=== PATIENT | female | born 2000 | race Caucasian/White ===

== ENCOUNTER → 2018-10-12 13:48 | Outpatient (CLI) | payer OTHER, SELFPAY ==
--- NOTE | 2018-10-12 13:58 | RAD_ITS ---
HISTORY: PAIN, HEMATURIA COMPARISON: None FINDINGS: XR Abdomen 1 View: BOWEL GAS PATTERN: Non-obstructive. No bowel or stomach distention. FREE AIR: None apparent. ORGANOMEGALY: Not seen. CALCIFICATIONS: 2 punctate calcifications on the right and one in the left pelvis. LOWER CHEST: No acute pathology. BONES AND SOFT TISSUES: No acute pathology. IUD in the pelvis. RAD/Abdomen Single View IMPRESSION: Non-obstructive bowel gas pattern. No acute findings. 2 punctate pelvic calcifications may represent phleboliths. Distal ureteral stones possible however. Comparison with priors would be helpful. at 0009 Reported and signed by: George Silva MD Electronically Signed: George Silva, at 0:08 EDT Tel , Service support ,
== END ==
DX: N20.0 Calculus of kidney (principal)
CPT/HCPCS: 74018

== ENCOUNTER 2022-07-17 18:32 | Emergency (ER) | payer BC, SELFPAY ==
[2022-07-17 18:34] VITALS: BP 149/97; PULSE 92; RESP 16; TEMP 37; O2SAT 100; BMI 23.8
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
[2022-07-17 19:25] VITALS: BP 121/87; PULSE 99; RESP 16; O2SAT 100
[2022-07-17 19:27] LABS: Absolute Lymphocyte Count 2.14 X10^3/uL (0.83-4.51); Basophil# 0.05 X10^3/uL; Basophil% 0.4 % (0-1); Eosinophil# 0.44 X10^3/uL; Eosinophils% 3.8 % (0-5); Hematocrit 34.6 % (37-47); Hemoglobin 11.2 g/dL (12.0-15.0); Lymphocyte # 2.14 X10^3/ul (0.83-4.51); Lymphocyte % 18.3 % (19-41); Mean Corp Hgb Conc 32.4 g/dL (32-36); Mean Corpuscular Hgb 29.1 pg (27.0-32.0); Mean Corpuscular Volume 89.9 fL (81-99); Mean Platelet Vol. 10.4 fl (6.2-12.0); Monocyte# 1.01 X10^3/uL; Monocyte% 8.7 % (0-10); NRBC Flagged by Analyzer 0 % (0-5); Neutrophil # 7.95 X10^3/uL (2.7-7.7); Neutrophil % 68.1 % (47-70); Platelet Count 273 K/mm3 (150-450); RBC Distribution Width CV 13.4 % (11.6-14.6); RBC Distribution Width SD 43.7 fl (35.1-43.9); Red Blood Count 3.85 M/mm3 (4.2-5.4); White Blood Count 11.7 K/mm3 (4.4-11.0)
[2022-07-17 19:50] LABS: Prothrombin Time (Protime)PT. 12.7 SECONDS (11.7-14.9)
[2022-07-17 19:51] LABS: Fibrinogen 587 mg/dl (203-444); Partial Thromboplast Time 28.4 Seconds (24.1-36.2)
== END 2022-07-17 19:26 | disposition home or self-care (01) ==
PROVIDERS: Emergency Provider Emergency Medicine; Visit Provider Emergency Medicine
DX: O9A.212 Injury, poisoning and certain other consequences of external causes complicating pregnancy, second trimester (principal); S39.81XA Other specified injuries of abdomen, initial encounter; S39.012A Strain of muscle, fascia and tendon of lower back, initial encounter; V43.52XA Car driver injured in collision with other type car in traffic accident, initial encounter; W22.11XA Striking against or struck by driver side automobile airbag, initial encounter; Y93.89 Activity, other specified; Z3A.20 20 weeks gestation of pregnancy
CPT/HCPCS: 85025; 85384; 85610; 85730; 86900; 86901; 99284

== ENCOUNTER 2022-07-17 19:20 | Outpatient (CLI) | payer BC, SELFPAY ==
[2022-07-17 19:34] VITALS: BP 113/65; PULSE 86; TEMP 37.6; O2SAT 99
[2022-07-17 20:10] VITALS: BMI 23.1
[2022-07-17 20:15] VITALS: PULSE 104; RESP 18
[2022-07-17] MEDS: Albuterol 2.5 MG/3 ML VIAL.NEB. INHALATION (20:15)
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
== END 2022-07-17 21:12 | disposition home or self-care (01) ==
LOC: WPOUT 19:28 → WP 19:28
PROVIDERS: Visit Provider Obstetrics & Gynecology
DX: O9A.212 Injury, poisoning and certain other consequences of external causes complicating pregnancy, second trimester (principal); O99.891 Other specified diseases and conditions complicating pregnancy; O99.512 Diseases of the respiratory system complicating pregnancy, second trimester; S39.91XA Unspecified injury of abdomen, initial encounter; J45.909 Unspecified asthma, uncomplicated; R06.02 Shortness of breath; Z3A.19 19 weeks gestation of pregnancy; V89.2XXA Person injured in unspecified motor-vehicle accident, traffic, initial encounter
CPT/HCPCS: 59050; 76815; 94640

== ENCOUNTER 2022-12-01 05:12 | Inpatient (IN) | payer BC, MEDICAID, SELFPAY ==
[2022-12-01] VITALS (19 sets, daily range): BP systolic 97–119; BP diastolic 40–83; PULSE 61–102; RESP 14–18; TEMP 36.4–37.2; O2SAT 95–100; BMI 28.5
[2022-12-01 05:55] LABS: Absolute Neutrophil Count 7.4 X10^3/uL (2.0-7.7); Basophil# 0.07 X10^3/uL; Basophil% 0.6 % (0-1); Eosinophil# 0.21 X10^3/uL; Eosinophils% 1.9 % (0-5); Hematocrit 31.6 % (37-47); Hemoglobin 9.9 g/dL (12.0-15.0); Lymphocyte % 17.7 % (19-41); Mean Corp Hgb Conc 31.3 g/dL (32-36); Mean Corpuscular Hgb 26.1 pg (27.0-32.0); Mean Corpuscular Volume 83.4 fL (81-99); Mean Platelet Vol. 11.2 fl (6.2-12.0); Monocyte# 1.22 X10^3/uL; Monocyte% 10.8 % (0-10); NRBC Flagged by Analyzer 0 % (0-5); Neutrophil # 7.44 X10^3/uL (2.7-7.7); Neutrophil % 65.6 % (47-70); Platelet Count 299 K/mm3 (150-450); RBC Distribution Width CV 16.7 % (11.6-14.6); RBC Distribution Width SD 42.5 fl (35.1-43.9); Red Blood Count 3.79 M/mm3 (4.2-5.4); White Blood Count 11.3 K/mm3 (4.4-11.0)
[2022-12-01] MEDS: Lactated Ringers 1,000 ML 999 ML IV (05:58)
[2022-12-01] MEDS: Acetaminophen 500 MG Tablet 1000 MG PO ×4 (06:39→23:47)
[2022-12-01] MEDS: Lactated Ringers 1,000 ML 150 ML IV (06:40)
[2022-12-01] MEDS: Sodium Citrate/Citric Acid 30 ML UDC PO (06:41)
--- NOTE | 2022-12-01 07:00 | PCM.HP.BLA ---
History and Physical Date of Admission: 12/01/22 DATE OF SERVICE: November 17, 2022 ? PROBLEM: h/o Crohn's disease, elective primary section, 39 week gestation, single IUP ? DIAGNOSIS: as above ? PAST SURGICAL HISTORY: PAST SURGICAL HISTORYExpand by Default PAST SURGICAL HISTORY Procedure Laterality Date ? ABSCESS DRAINAGE (SPECIFY LOCATION) HX ? ? ? perianal 2017, 2018, 2018, 2020 ? ADENOIDECTOMY PRIMARY <AGE 12 ? ? ? Adenoidectomy ? COLONOSCOPY ? 2009 ? ENDOSCOPY PROC ? ? ? TONSILLECTOMY PRIMARY/SECONDARY <AGE 12 ? ? ? Tonsillectomy ? ? PAST MEDICAL HISTORY: PAST MEDICAL HISTORYExpand by Default PAST MEDICAL HISTORY Diagnosis Date ? Anemia ? ? anxiety ? ? Asthma ? ? Chlamydia ? ? 2020 ? Crohn's disease (HCC) 2008 ? Motion sickness ? ? ? SUBJECTIVE: Doing well and no complaits ? SOCIAL HISTORY: SOCIAL HISTORYExpand by Default Social History ? Tobacco Use ? Smoking status: Never ? Smokeless tobacco: Never Vaping Use ? Vaping Use: Never used Substance Use Topics ? Alcohol use: No ? Drug use: No ? ? ALLERGIESExpand by Default ALLERGIES Allergen Reactions ? Aspirin Shortness of Breath ? Peanuts Shortness of Breath ? Reglan [Metoclopram* Intolerance ? ? anxiety ? Shellfish Derived Swelling ? ? Swelling of throat ? Current Outpatient Medications on File Prior to Visit Medication Sig ? valACYclovir (VALTREX) 500 mg tablet Take 1 tablet by mouth twice daily. ? Lactobacillus acidophilus (FLORAJEN ACIDOPHILUS) 20 billion cell cap Take 1 capsule by mouth once daily. ? EPINEPHRINE (EPIPEN INJECTION) Inject intramuscularly. ? fluticasone-salmeterol (ADVAIR) 500-50 mcg/dose dsdv Inhale 1 Puff as instructed twice daily. ? albuterol HFA (PROVENTIL HFA, VENTOLIN HFA) 90 mcg/actuation inhaler Inhale 2 Puffs as instructed every 4 hours as needed for wheezing/shortness of breath. ? pyridoxine, vitamin B6, (VITAMIN B6) 25 mg tablet Take 1 tablet by mouth daily at bedtime. ? cholecalciferol (VITAMIN D3) 1,000 unit tab tablet 2 tablets by ORAL/FEEDING TUBE route once daily. ? Ferrous Fumarate 325 mg (106 mg iron) tab Take 1 tablet by mouth every other day in the morning. Take with food and water ? No current facility-administered medications on file prior to visit. ? OBJECTIVE: ? VITALS: BP 120/80 Wt 164 lb 9.6 oz (74.7 kg) LMP 03/01/2022 (Exact Date) BMI 25.78 kg/m? ? HEENT: Normocephalic, atraumatic, Mucus membranes moist without lesions. ? NECK: Soft and Supple. No adenopathy , thyromegaly or bruits. ? SKIN: No lesions. ? CHEST: Clear to auscultation. No wheezes or rales. Good air exchange. ? HEART: Regular rate and rhythm No S3 or S4. No gallops or rubs. ? BACK: Nontender with no CVA tenderness. ? ABDOMEN: Soft, non-tender, non-distended, no masses, no hepatosplenomegaly. ? LOWER EXTREMITIES: There was no pitting edema, no palpable cords and no skin changes. ? ASSESSMENT: pre op section ? PLAN: 1) Reviewed section in detail. The rationale for the proposed surgery was discussed in addition to risks, benefits, and alternatives. General pre- and post-operative care was reviewed. Questions were answered. After discussion, the patient indicated a desire to proceed with the planned surgery. ? Stacie Arriaga, DO Assessment & Plan Assessment/Plan (1) 39 weeks gestation of : (2) Crohn's disease: (3) Anemia affecting :
[2022-12-01] MEDS: Cefazolin 2 GM in 0.9% Normal Saline 100 ML IV (07:10)
--- NOTE | 2022-12-01 08:22 | PCM.OPRPT ---
Problems Associated Problem List Diagnoses (1) Delivery by section: (2) Anemia affecting : (3) Crohn's disease: (4) 39 weeks gestation of : Report of Operation Date of Procedure: 12/01/22 Pre-Operative Diagnosis: 39 week gestation, single IUP, history Crohn's disease, anemia in Post-Operative Diagnosis: As above Surgery/Procedure Performed:: PLTCS via pfannenstiel incision Description of Surgical Findings:: VFI in cephalic presentation. Clear fluid. Apgars 8, 9. Normal appearing placenta. Normal appearing uterus with bilateral adnexa. Surgeon: Stacie Arriaga auto body repair technician: Biju TRIMBLE Type of Anesthesia: Spinal Special Medications: None Specimen's removed: Placenta Drains: Pisano Estimated Blood Loss (mL): 800 Fluids Replaced: 1500 Description of Procedure: The patient was taken to the operating room where spinal anesthesia was found to be adequate. She was prepped and draped in the dorsal position with leftward tilt. A Pfannenstiel skin incision was made with a scalpel and this was carried down to the underlying layer of fascia. The fascia was incised in midline. The fascia was extended laterally with blunt dissection. The fascia was minimally dissected off of the rectus muscles in a cephalad direction. The rectus muscles were in the midline. The peritoneum was entered bluntly with good visualization of the bladder. The peritoneal incision was extended bluntly. A bladder blade was inserted. A low transverse incision was made on the uterus with a scalpel. Membranes were ruptured for clear fluid. A vigorous viable female was delivered easily without any force or delay through the hysterotomy. The cord was clamped and cut after a slight delay. The placenta was removed with manual extraction. The uterus was exteriorized. The uterus was cleared of all clot and debris. The uterine incision was closed with 1-0 Vicryl in a running locked fashion. Bilateral adnexa were normal-appearing. The uterus was placed back into the abdomen. Cade was placed over the lower uterine segment and hysterotomy. Rectus muscles were noted to be hemostatic. The fascia was closed with strata fix in a running fashion. The subcutaneous space was irrigated and made hemostatic with the Bovie cautery. Subcutaneous space was reapproximated using 3-0 Vicryl. The skin was closed with 4-0 Monocryl in a subcuticular fashion. Steri-Strips and a dressing were placed. Instrument, sponge, needle counts were correct and patient was taken to recovery room in stable condition. Grafts/Implants Used: None Procedure Start Time: 07:32 Procedure Stop Time: 08:13 Complications None Admit VTE Documentation VTE Present on Admission: No VTE Mechan Device Prophylaxis: SCD's
[2022-12-01] MEDS: Oxytocin 15 Units/NS 250ml 15 UNITS/250 ML IV.SOLN 83 UNITS IV (08:38)
[2022-12-01] MEDS: Ketorolac 30 MG/ML Syringe IV ×3 (08:47→21:29)
[2022-12-01 09:10] LABS: Syphilis Antibodies Non-reactive
[2022-12-01] MEDS: Lactated Ringers 1,000 ML 100 ML IV (11:41)
[2022-12-01] MEDS: Ondansetron 4 MG/2 ML Vial IV ×2 (11:50→17:55)
[2022-12-01] MEDS: 0.9% Saline Lock 10 ML Syringe IV (17:56)
--- NOTE | 2022-12-01 18:05 | NURSING ---
This RN Called Sandor Mane CNM to update her on pt. blood pressure of 102/40, with low output. Cara Mane wants 500 LR fluid bolus given to the pt.
[2022-12-01] MEDS: LACTATED RINGERS 500 ML 999 ML IV (18:21)
--- NOTE | 2022-12-01 23:28 | NURSING ---
Report given to Izabela EDMONDS, taking over care at this time.
[2022-12-02] MEDS: 0.9% Saline Lock 10 ML Syringe IV ×2 (02:27→14:38)
[2022-12-02] MEDS: Ketorolac 30 MG/ML Syringe IV (02:27)
[2022-12-02 03:53] VITALS: BP 106/57; PULSE 68; RESP 18; TEMP 36.3; O2SAT 97
[2022-12-02] MEDS: Acetaminophen 500 MG Tablet 1000 MG PO (06:01)
[2022-12-02 06:14] LABS: Hematocrit 24.8 % (37-47); Hemoglobin 7.7 g/dL (12.0-15.0); Mean Corpuscular Hgb 26.2 pg (27.0-32.0); Mean Corpuscular Volume 84.4 fL (81-99); Mean Platelet Vol. 10.7 fl (6.2-12.0); Platelet Count 241 K/mm3 (150-450); RBC Distribution Width CV 16.9 % (11.6-14.6); RBC Distribution Width SD 42.9 fl (35.1-43.9); Red Blood Count 2.94 M/mm3 (4.2-5.4); White Blood Count 11.2 K/mm3 (4.4-11.0)
[2022-12-02 07:00] VITALS: BP 108/64; PULSE 60; RESP 18; TEMP 36.4; O2SAT 96
--- NOTE | 2022-12-02 08:41 | PCM.PN.OB ---
Subjective Subjective Patient doing okay this morning. She reports some motion sickness and nausea throughout the day yesterday. She states when she turns her head from side to side she will feel lightheaded and dizzy with nausea. No vomiting. She feels this motion sickness and nausea has improved somewhat this morning, but has not been out of bed yet. Passing gas. Pisano was just removed. Lochia is normal. Pain is controlled. Objective Data Objective Data Vital Signs: Vital Signs Temp Pulse Resp BP Pulse Ox O2 Del Method 97.4 F L 68 18 106/57 L 97 Room Air 12/02/22 03:53 12/02/22 03:53 12/02/22 03:53 12/02/22 03:53 12/02/22 03:53 12/02/22 03:53 Oxygen Delivery Method Room Air Weight: 166 lb 4 oz Body Mass Index (BMI) 28.5 Intake & Output: Intake and Output for Last 24 Hours 11/30/22 12/01/22 12/02/22 23:59 23:59 23:59 Intake Total 2965 / 2965 Output Total 1925 / 1925 300 / 300 Balance 1040 / 1040 -300 / -300 Lab / Micro Data Result Diagrams: 12/02/22 06:08 Labs: Laboratory Results - last 24 hr 12/01/22 05:40: Syphilis Total Ab Non-reactive 12/02/22 06:08: WBC 11.2 H, RBC 2.94 L, Hgb 7.7 L, Hct 24.8 L, MCV 84.4, MCH 26.2 L, MCHC 31.0 L, RDW Std Deviation 42.9, RDW Coeff of Aurora 16.9 H, Plt Count 241, MPV 10.7 Physical Exam Const alert and no apparent distress General Appearance: comfortable Resp normal respiratory effort GI soft to palpation GI Narrative: ATTP, dressing c/d/i Assessment & Plan (1) Delivery by section: PLAN: POD#1 s/p scheduled section - Pain controlled - Suspect some symptoms related to anesthesia and should notice significant improvement today. Discussed with pt if still feeling lightheaded and dizzy when ambulating today, will recommend blood transfusion given acute on chronic blood loss anemia. If symptoms improve today, will recheck CBC in the morning and discussed may still need a transfusion or at least IV iron - Routine PO care - Dispo: Possible discharge later today but will see how pt does throughout the day today (2) Acute on chronic blood loss anemia:
[2022-12-02] MEDS: Ibuprofen 600 MG Tablet PO ×3 (08:56→22:10)
--- NOTE | 2022-12-02 11:18 | NURSING ---
Pt passed 2 golf ball size clots and RN to visualized but rubra scant, FF u/2, and pt returned to bed to rest and encouraged to drink water. Coke also given for MOHR-8/10 that is worse when pt sits up in bed. Dr. Arriaga called because pt is requesting Melstone and colace 100mg po bid since she has a hx of crohn's disease.
[2022-12-02 12:00] VITALS: BP 116/67; PULSE 67; RESP 18; TEMP 36.8; O2SAT 95
--- NOTE | 2022-12-02 12:52 | NURSING ---
Dr. Negrete consulted per Dr. Arriaga to evaluate pt for spinal headache or post-operative low H/H for generalized MOHR pt is rating 8/10 but improves when pt lies down.
[2022-12-02] MEDS: Docusate Sodium 100 MG Capsule PO ×2 (14:22→22:11)
[2022-12-02] MEDS: HYDROcodone Bitartrate/Apap 5/325 Tablet PO ×2 (14:23→20:37)
--- NOTE | 2022-12-02 14:31 | CASEMGMT ---
Social Work Assessment Labor and Delivery Unit Patient Address: [address] [place] [address] Phone number: [phone] Date of Referral: 12/01/22 Time of Referral:? 540 Referred By: Puneet Smith Date of Intervention: 12/02/22?? Time of Intervention:? 1329 Reason for Referral:? History obtained from: medical records and mother of baby (ENEDINA)Yuliya?? Household composition: Currently residing at the home is MOB and father of baby (FOB) Kin Almaraz (: 07/08/1990) Patient's parent/guardian status:? ENEDINA reports they have been together for 4 years. FOB is involved and was at delivery. [place] baby is FOB 5th child, first with ENEDINA. ENEDINA reports that LEA was in a former relationship where he had two children and is also parenting two of that partner's children that she had without him. Medical History: This is first / delivery for ENEDINA. ENEDINA received routine care at [facility] during . ENEDINA also has Chron's disease and is struggling at this time with leaking spinal fluid following her spinal tap. ENEDINA is also anemic and may need a transfusion prior to discharge from L&D. Baby girl, Alyce Franklin was born on 12/01/22 weighing 3350 grams, apgars were 8 and 9. ENEDINA is working on . Educational Status:?ENEDINA graduated from nursing school with her WINE BLENDER from [employer]. LEA is a high school graduate with some college education, but did not graduate with degree. Neither parent has difficulty with learning/ reading/ writing/ comprehension. 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 ENEDINA was previously working at [employer] in [place]. ENEDINA states that at this time she is unemployed by them, but when her maternity leave is up she will be re-employed. Supplies:??MOB reports that parents have obtained all necessary baby items including car seat, safe sleep space, baby clothes, diapers and wipes. Childcare/Caregiver(s):? ENEDINA states that when she returns to work she will be able to use her parents for childcare, as well as friends. Transportation:?? Both parents have drivers license and reliable vehicles. No transportation barriers at this time. Programs/Agencies Involved: ?ENEDINA is connected with food stamps through [employer] and [employer]. Children Services/Legal Issues:?No former involvement, no concerns at this time that warrant referral. Behavioral Health Issues: ?ENEDINA is extremely anxious. She reports that this is a result of a boyfriend of hers dying at the age of 18 unexpectedly while they were dating. ?Mental Health History:?ENEDINA has been diagnosed with anxiety and ADHD. MOB states that she considers herself to be fully aware of her anxiety, symptoms of anxiety and irrational thoughts that her anxiety makes her have. Sw educated MOB on signs and symptoms of baby blues and post depression. MOB completed [place] Depression Scale. MOB score was a 10. Sw strongly encouraged MOB to get connected to community mental health supports. MOB stated that her OBGYN made a referral for her to start counseling with [facility]. Sw encouraged MOB to follow through with referral.?MOB denies current or history of SI. ENEDINA reports that she is safe at home, denies DV/ abuse. ? Substance Use History: MOB denies substance use history. ENEDINA stated that she does not like how her body feels when she is under the influence, so she does not drink and has not done drugs. ?? Family History:???ENEDINA reports that her mother has been in recovery for 14 years. MOB states that her mom also has Chron's disease and became addicted to Percocet. ?? Drug Screens: MOB urine screen was negative at delivery. ?? Family/Social Stressors:? MOB only identifies her mental health as a stressor. MOB stated that FOB is extremely supportive and helps her cope with symptoms of anxiety. Support Systems: ENEDINA reports that her parents are extremely supportive and helpful. ENEDINA states that she also has friends that she can count on to talk to her as well as FOB. Depression/Shaken Baby/Safe Sleeping: Signs and symptoms of baby blues and depression discussed. Sw provided MOB with literature explaining baby blues and depression. Sw educated MOB on shaken baby and ABC's of sleep. MOB expressed understanding. ASSESSMENT:? MOB talkative and engaging with sw during assessment. MOB appeared to be interacting appropriately and lovingly with . MOB receptive to sw involvement and support. MOB also receptive to referral to [facility] Me [facility]. PLAN:? Sw will make referral to [facility] Me [facility] as previously discussed and agreed upon with MOB. ?No other services requested or indicated. Luis Felipe Grimm, HOUSE FURNISHINGS SUPERVISOR, LANGUAGE AND LITERATURE DIVISION CHAIR
[2022-12-02] MEDS: Ondansetron 4 MG/2 ML Vial IV (14:39)
[2022-12-02 15:03] VITALS: PULSE 77; RESP 16
[2022-12-02] MEDS: Albuterol 2.5 MG/3 ML VIAL.NEB. INHALATION (15:03)
[2022-12-02 20:42] VITALS: BP 122/68; PULSE 66; RESP 17; TEMP 37
[2022-12-03] VITALS (12 sets, daily range): BP systolic 105–139; BP diastolic 48–86; PULSE 58–84; RESP 14–18; TEMP 36.5–37.3; O2SAT 95–99
[2022-12-03] MEDS: HYDROcodone Bitartrate/Apap 5/325 Tablet PO ×3 (02:48→16:57)
[2022-12-03] MEDS: Ibuprofen 600 MG Tablet PO ×4 (04:34→22:14)
[2022-12-03 05:42] LABS: Hematocrit 27.8 % (37-47); Hemoglobin 8.5 g/dL (12.0-15.0); Mean Corp Hgb Conc 30.6 g/dL (32-36); Mean Platelet Vol. 10.3 fl (6.2-12.0); Platelet Count 231 K/mm3 (150-450); RBC Distribution Width CV 17.8 % (11.6-14.6); RBC Distribution Width SD 47.8 fl (35.1-43.9); Red Blood Count 3.27 M/mm3 (4.2-5.4); White Blood Count 11.7 K/mm3 (4.4-11.0)
[2022-12-03] MEDS: Docusate Sodium 100 MG Capsule PO ×2 (09:22→22:14)
--- NOTE | 2022-12-03 10:14 | NURSING ---
1013-called khanh romo will text dr bradley and find out planned time for blood patch to be done d/t headache.
--- NOTE | 2022-12-03 10:18 | RAD.NOTE ---
1015-jblough air tucker returned call, had heard from dr bradley-was told d/t it being a spinal needle this should heal on its own, this nurse will call dr bradley d/t pt being very uncomfortable w the headache.
[2022-12-03] MEDS: Ondansetron 4 MG/2 ML Vial IV (10:41)
[2022-12-03] MEDS: 0.9% Saline Lock 10 ML Syringe IV ×2 (10:42→12:33)
--- NOTE | 2022-12-03 10:46 | PCM.PN.OB ---
Subjective Subjective Patient is feeling better this morning other than headache. She has a severe headache when she is sitting up or standing, and the headache is improved when laying flat. She denies lightheadedness or dizziness but has not been ambulating often due to this headache. Her nausea has improved. She tolerated breakfast this morning without nausea or vomiting. Lochia is normal. She is voiding without difficulty. She denies chest pain, shortness of breath, leg pain. She desires to stay another night. Objective Data Objective Data Vital Signs: Vital Signs Temp Pulse Resp BP Pulse Ox O2 Del Method 98.1 F 79 18 117/73 98 Room Air 12/03/22 08:45 12/03/22 08:45 12/03/22 08:45 12/03/22 08:45 12/03/22 08:45 12/03/22 08:45 Oxygen Delivery Method Room Air Weight: 166 lb 4 oz Body Mass Index (BMI) 28.5 Intake & Output: Intake and Output for Last 24 Hours 12/01/22 12/02/22 12/03/22 23:59 23:59 23:59 Intake Total 2965 / 2965 Output Total 1925 / 1925 300 / 300 Balance 1040 / 1040 -300 / -300 Lab / Micro Data Result Diagrams: 12/03/22 05:32 Labs: Laboratory Results - last 24 hr 12/03/22 05:32: WBC 11.7 H, RBC 3.27 L, Hgb 8.5 L, Hct 27.8 L, MCV 85.0, MCH 26.0 L, MCHC 30.6 L, RDW Std Deviation 47.8 H, RDW Coeff of [place] 17.8 H, Plt Count 231, MPV 10.3 Physical Exam Const alert and no apparent distress General Appearance: comfortable GI soft to palpation GI Narrative: ATTP, non acute, dressing c/d/i Extremity no calf tenderness Assessment & Plan (1) Acute on chronic blood loss anemia: (2) Delivery by section: PLAN: Patient is postoperative day 2 from a primary section. She is improved this morning. Anesthesia has evaluated her spinal headache and is planning to perform a blood patch today. Once her headache is improved we will encourage ambulation today. She denies any symptoms of anemia but has not been ambulating much due to her headache. Hemoglobin is stable. We will give a dose of IV iron today. Patient desires to stay another night. Anticipate discharge tomorrow. (3) Spinal headache:
[2022-12-03] MEDS: Lactated Ringers 1,000 ML 999 ML IV (11:04)
--- NOTE | 2022-12-03 15:37 | NURSING ---
Time out for Blood patch for spinal headache done at 1104 by oliver ackerman and dr bradley pt name, , procedure, and medical record number verified
--- NOTE | 2022-12-03 15:41 | NURSING ---
1118- blood pressure post spinal blood patch- site intact no drng noted
--- NOTE | 2022-12-03 15:42 | NURSING ---
1130-spinal procedure site intact w/o redness/drng
--- NOTE | 2022-12-03 15:43 | NURSING ---
1200-blood patch site intact w/o redness/drng
--- NOTE | 2022-12-03 15:44 | NURSING ---
1145-blood patch site intact w/o redness/drng
--- NOTE | 2022-12-03 15:54 | NURSING ---
1215-blood patch site intact w/o redness/drng
--- NOTE | 2022-12-03 15:55 | NURSING ---
1330-blood patch intact w/o redness/drng
[2022-12-03] MEDS: Albuterol IH (6.7 GM) 1 PUFF INHALER INHALATION (22:45)
[2022-12-04 02:09] VITALS: BP 112/71; PULSE 78; RESP 16; TEMP 36.6; O2SAT 98
[2022-12-04] MEDS: HYDROcodone Bitartrate/Apap 5/325 Tablet PO (02:34)
[2022-12-04] MEDS: Ibuprofen 600 MG Tablet PO ×2 (04:12→10:11)
--- NOTE | 2022-12-04 05:45 | PCM.PN.OB ---
Subjective Subjective Patient is doing well. She feels significantly improved after blood patch. She is ambulating and voiding without difficulty. She is eating without nausea or vomiting. She denies lightheadedness, dizziness, chest pain, shortness of breath, leg pain. Lochia is normal. She is breast-feeding. Desires discharge to home today. Objective Data Objective Data Vital Signs: Vital Signs Temp Pulse Resp BP Pulse Ox O2 Del Method 97.9 F 78 16 112/71 98 Room Air 12/04/22 02:09 12/04/22 02:09 12/04/22 02:09 12/04/22 02:09 12/04/22 02:09 12/04/22 02:09 Oxygen Delivery Method Room Air Weight: 166 lb 4 oz Body Mass Index (BMI) 28.5 Intake & Output: Intake and Output for Last 24 Hours 12/02/22 12/03/22 12/04/22 23:59 23:59 23:59 Intake Total 1110 / 1110 Output Total 300 / 300 Balance -300 / -300 1110 / 1110 Lab / Micro Data Result Diagrams: 12/03/22 05:32 Physical Exam Const alert and no apparent distress General Appearance: comfortable HEENT normocephalic GI soft to palpation GI Narrative: ATTP, non acute, dressing c/d/i Extremity no calf tenderness Assessment & Plan (1) Acute on chronic blood loss anemia: (2) Delivery by section: PLAN: Patient is postop day 3 from a section. She is doing well this morning and offers no complaints. She is ready for discharge. Discharge instructions reviewed. She is to follow-up in the office this week for incision check. (3) Spinal headache: (4) Crohn's disease:
--- NOTE | 2022-12-04 05:50 | DCINST_ITS ---
Discharge Instructions Diet Discharge Diet: No restrictions Activity Discharge Activity: May Not Drive May shower in (days): 0 May resume sexual activity in: 6 weeks Ice area for (Minutes): 15 Weight Bearing Status: Weight bearing as tolerated Lifting Restrictions: Nothing heavier than baby Dressing / Incision Call your doctor if your incision/area has: Continuous Slow Oozing, Sudden Increased Bleeding, Increased Pain/ Swelling, Increased Redness, Foul Smelling Discharge and Swelling at the incision site Call your doctor if you observe: Fever of 101 or Higher, Coldness, Increased Pain, Numbness or Tingling, Change in Color, Inability to urinate, Inability to have a bowel movement, Using more than 1 pad per hour, Shortness of breath, Dizziness, Fainting spells, Swelling in the ankles, Chest pain, Increased palpitations (irregular heartbeat), Calf discomfort and Uncontrolled pain Suture Line Care: Avoid Pulling/Pushing and Avoid Pinching/Bending Remove Dressing in: 1 day (ok to remove in the shower) Cleanse incision/area with: Soap & Water Follow Up Care Please Follow Up With: Stacie Arriaga DO When: 1 week for incision check 6 weeks for visit Test Results: Test results from this visit will be discussed in further detail at your follow- up appointment, if applicable. Discharge Plan Admission Admit Date/Time: 12/01/22 05:12 Primary Reason for Your Visit: delivery Attending Provider: Stacie Arriaga Primary Care Provider: Care Physician,No Primary Consulting Providers: Puneet Smith Instructions Patient Instructions: Section Dc Discharge Orders/Prescriptions Prescriptions: New hydrocodone-acetaminophen 5-325 mg tablet 1 tab PO Q6H PRN (Reason: pain) 7 Days Qty: 10 0RF docusate sodium [Colace] 100 mg capsule 100 mg PO BID Qty: 30 0RF Continued albuterol sulfate 90 mcg/actuation HFA aerosol inhaler 1 - 2 puff INHALATION Q4H PRN PRN (Reason: Wheezing) Label Comments: INHALE 2 PUFFS EVERY 4 TO 6 HOURS NEEDED FOR SHORTNESS OF BREATH Referrals / Follow Up: Care Physician,No Primary [Primary Care Provider] - Disposition Disposition (needs filled in before D/C Order can be placed): Home, Self Care
--- NOTE | 2022-12-04 05:51 | PCM.DC.SUM ---
Providers Date of Admission: 12/01/22 Date of Discharge: 12/04/22 Primary Care Physician: No Primary Care Phys Reason For Visit: PRIM C SECTION DELIVERED Diagnosis Discharge Diagnosis (1) Acute on chronic blood loss anemia: Status: Chronic Code(s): D62 - Acute posthemorrhagic anemia (2) Delivery by section: Status: Acute Plan: Patient is postop day 3 from a section. She is doing well this morning and offers no complaints. She is ready for discharge. Discharge instructions reviewed. She is to follow-up in the office this week for incision check. (3) Spinal headache: Status: Acute Code(s): G97.1 - Other reaction to spinal and lumbar puncture (4) Crohn's disease: Status: Acute Code(s): K50.90 - Crohn's disease, unspecified, without complications Medications at Discharge Home Medications albuterol sulfate 90 mcg/actuation aerosol inhaler 1 - 2 puff inhalation Q4H PRN PRN Wheezing 07/17/22 docusate sodium 100 mg capsule (Colace) 100 mg PO BID #30 caps 12/04/22 hydrocodone-acetaminophen 5-325mg 5mg-325mg 1 tab PO Q6H PRN pain 7 days #10 tabs 12/04/22 Hospital Course Operations section Summary of Care Provided Hospital Course: Patient presented at 39 weeks for a scheduled primary section given history of Crohn's disease. See operative report for details. Postop she did receive IV iron for acute on chronic blood loss anemia. She also received a blood patch for spinal headache. On postoperative day 3 her pain was controlled, she was ambulating and voiding without difficulty, and she was tolerating her diet, and discharged home in good condition with follow-up in the office in 1 week. Weight / BMI Weight Weight: 166 lb 4 oz Body Mass Index (BMI) 28.5 ABG / Lab / Microbiology Data Result Diagrams: 12/03/22 05:32 D/C Instructions Discharge Diet: No restrictions May shower in (days): 0 May resume sexual activity in: 6 weeks Ice area for (Minutes): 15 Weight Bearing Status: Weight bearing as tolerated Call your doctor if your incision/area has: Continuous Slow Oozing, Sudden Increased Bleeding, Increased Pain/ Swelling, Increased Redness, Foul Smelling Discharge and Swelling at the incision site Call your doctor if you observe: Fever of 101 or Higher, Coldness, Increased Pain, Numbness or Tingling, Change in Color, Inability to urinate, Inability to have a bowel movement, Using more than 1 pad per hour, Shortness of breath, Dizziness, Fainting spells, Swelling in the ankles, Chest pain, Increased palpitations (irregular heartbeat), Calf discomfort and Uncontrolled pain Suture Line Care: Avoid Pulling/Pushing and Avoid Pinching/Bending Cleanse incision/area with: Soap & Water Please Follow Up With: Stacie Arriaga DO When: 1 week for incision check 6 weeks for visit Meaningful Use Info Meaningful Use Diagnoses (Choose all that apply): None applicable Discharge Plan Admission Admit Date/Time: 12/01/22 05:12 Primary Reason for Your Visit: delivery Attending Provider: Stacie Arriaga Primary Care Provider: Care Physician,No Primary Consulting Providers: Puneet Smith Instructions Patient Instructions: Section Dc Discharge Orders/Prescriptions Prescriptions: New hydrocodone-acetaminophen 5-325 mg tablet 1 tab PO Q6H PRN (Reason: pain) 7 Days Qty: 10 0RF docusate sodium [Colace] 100 mg capsule 100 mg PO BID Qty: 30 0RF Continued albuterol sulfate 90 mcg/actuation HFA aerosol inhaler 1 - 2 puff INHALATION Q4H PRN PRN (Reason: Wheezing) Label Comments: INHALE 2 PUFFS EVERY 4 TO 6 HOURS NEEDED FOR SHORTNESS OF BREATH Referrals / Follow Up: Care Physician,No Primary [Primary Care Provider] - Disposition Disposition (needs filled in before D/C Order can be placed): Home, Self Care
[2022-12-04 08:44] VITALS: BP 114/66; PULSE 80; RESP 16; TEMP 37.1; O2SAT 98
[2022-12-04] MEDS: Docusate Sodium 100 MG Capsule PO (10:11)
[2022-12-04 12:22] VITALS: BP 117/80; PULSE 91; RESP 16; TEMP 36.2; O2SAT 97
== END 2022-12-04 12:45 | disposition home or self-care (01) | DRG 787 ==
PROVIDERS: Obstetrics & Gynecology; Admitting Provider Obstetrics & Gynecology; Referring Provider Obstetrics & Gynecology; Visit Provider Obstetrics & Gynecology
PROC: 10D00Z1 Extraction of Products of Conception, Low, Open Approach (ICD-10-PCS; CPT 59514; principal; 2022-12-01 06:55)
DX: O99.02 Anemia complicating childbirth (principal); K50.90 Crohn's disease, unspecified, without complications; D62 Acute posthemorrhagic anemia; O99.355 Diseases of the nervous system complicating the puerperium; G97.1 Other reaction to spinal and lumbar puncture; Z37.0 Single live birth; O99.62 Diseases of the digestive system complicating childbirth; Z3A.39 39 weeks gestation of pregnancy
CPT/HCPCS: 59025; 59050; 85025; 85027; 86780; 86850; 86900; 86901; 94640; 99221; J1756; J7120; A4216; G0378; J2405

== ENCOUNTER 2022-12-09 10:22 | Inpatient (IN) | payer BC, MEDICAID, SELFPAY ==
[2022-12-09] VITALS (7 sets, daily range): BP systolic 112–126; BP diastolic 71–80; PULSE 54–102; RESP 14–18; TEMP 36–36.9; O2SAT 98–100; BMI 28.5
--- NOTE | 2022-12-09 10:40 | CT_ITS ---
STUDY: CT ABDOMEN AND PELVIS WITH CONTRAST REASON FOR EXAM: Female, 22 years old. abd pain. crohns hx. s/p RADIATION DOSAGE (If Supplied By Facility): CTDIvol = ( 12.58 ) mGy, DLP = ( 596.04 ) mGycm TECHNIQUE: Transaxial images were obtained from the dome of the diaphragm to the symphysis pubis without oral contrast. IV 100mL Isovue-370 was administered. Sagittal and coronal images were reconstructed. Individualized dose optimization techniques were used for this CT. COMPARISON: None. FINDINGS: The visualized lung bases are unremarkable. The visualized portions of the heart are within normal limits. Normal liver. Normal gallbladder and extrahepatic biliary system. Normal spleen. Normal pancreas. Normal bilateral adrenal glands. Normal right kidney. Normal left kidney. Normal visualized stomach. Normal small intestine. Normal colon. There is a tubular, thick-walled appendix (>7mm), consistent with acute appendicitis. The appendix is retrocecal. Inflammatory changes are seen. Normal abdominal aorta. Normal inferior vena cava. Normal retroperitoneum. Normal urinary bladder. Enlarged uterus. Patient has a history of recent or section. There is a small umbilical hernia containing fat. Small amount of air is seen in the subcutaneous fat at the level of the surgical incision. Normal osseous structures. CT/Abdomen/Pelvis W IV Cont ONLY IMPRESSION: Findings in keeping with acute appendicitis. The appendix is retrocecal. Enlarged uterus due to recent section. Electronically Signed: Shlomo Gordon MD at 12:02 EDT ,
--- NOTE | 2022-12-09 10:42 | EDS_ITS ---
HPI HPI - GI History of Present Illness Chief Complaint: Abd Pain Informant: patient Abdominal Pain/Flank Pain Onset: Today and Yesterday Context: Gradual Onset Timing: Continuous Quality: Aching Location: Diffuse Current Severity: Mild Maximum Severity: Mild Worsened by: Nothing Relieved by: Nothing Nausea/Vomiting/Emesis GI Symptom: Negative for Nausea or Vomiting Diarrhea/Melena/Hematochezia GI Symptom: Positive for Diarrhea Onset: Yesterday Stool Quality: Positive for Loose Severity: Mild Associated Symptoms Associated Symptoms: Negative for Dysuria, Frequency or Hematuria Narrative Narrative: 22-year-old female status post at 39 weeks about 1 week ago. Has a known history of Crohn's disease. This was her first and her first abdominal and pelvic surgery. She was doing well until last night started having abdominal pain diffusely. Some loose stools that have resolved. No nausea or vomiting. She had a fever of 101 several days ago that is since resolved. Her [employer] office did a urinalysis that was negative. Patient believes this may be a Crohn's flare. 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 Home Medications albuterol sulfate 90 mcg/actuation aerosol inhaler 1 - 2 puff inhalation Q4H PRN PRN Wheezing 07/17/22 [History Last Taken 12/08/22] Allergy/AdvReac Type Severity Reaction Status Date / Time aspirin Allergy Shortness Verified 07/17/22 18:41 of breath peanut [peanuts] Allergy Anaphylaxis Verified 12/01/22 05:35 shellfish derived Allergy Shortness Verified 07/17/22 19:41 of breath metoclopramide [From Reglan] AdvReac Other Verified 12/01/22 05:35 Surgical History History of surgery History of surgery Social History Smoking Status: Never smoker ROS ROS ED ROS Narrative No stools. Fever days ago. Resolved. Review of Systems ROS Unobtainable: Denies due to encephalopathy Constitutional Constitutional ED: Reports fever(s) ENT ENT ED: Denies ear pain Cardiovascular Cardiovascular: Denies chest pain Respiratory/Chest Respiratory/Chest: Denies cough Gastrointestinal Gastrointestinal: Reports abdominal pain and diarrhea; Denies constipation, melena, nausea or vomiting Genitourinary Genitourinary ED: Denies dysuria or hematuria Musculoskeletal Musculoskeletal: Denies arthralgias Integumentary Denies abscess Neurologic Neurologic: Denies headache(s) Psychiatric Psychiatric: Denies anxiety Endocrine Endocrinology: Denies polydipsia Hematologic/Lymphatic Hematologic/Lymphatic: Denies easy bleeding Allergic/Immunologic Allergic/Immunologic ED: Denies mouth swelling EXAM Physical Exam Narrative Exam Narrative: 23-year-old female no acute distress. Vital signs stable afebrile. Significant other at bedside. H EENT exam unremarkable. Neck nontender. Lungs clear to auscultation bilaterally. Heart tachycardic rate about 105 no murmur. Abdomen soft nondistended normal bowel sounds no peritoneal signs. Well-healing suprapubic, horizontal incision. Dry and clean. Abdomen is tender but not localizing. No peritoneal signs. Right upper right lower quadrants are unremarkable. No distention. Moving all 4 extremities. Nontender no edema. Back nontender. She is awake and alert. Answering questions following commands. Benign exam. Const Vital Signs: 12/09/22 10:23 12/09/22 12:22 12/09/22 14:00 Temperature 96.8 F L Temperature Source Temporal Pulse Rate 102 H 78 76 Respiratory Rate 18 16 14 Blood Pressure 112/79 126/76 H 116/76 Blood Pressure Mean 90 92 89 Pulse Ox 99 98 98 Oxygen Delivery Method Room Air Room Air 12/09/22 16:00 Temperature Temperature Source Pulse Rate 64 Respiratory Rate 16 Blood Pressure 124/76 H Blood Pressure Mean 92 Pulse Ox 99 Oxygen Delivery Method Room Air Positive well nourished and well developed; Negative for obese, cachectic, contractures or unkempt General Appearance ED: well developed and NAD; Negative for unkempt, cachectic, contractures or pallor Nutritional Appearance: Negative for cachectic or obese HEENT Reports moist mucous membranes normocephalic and atraumatic; Negative for trauma or tenderness Eyes PERRL and EOMs intact bilaterally General Eye ED: Negative for pale conjunctiva or scleral icterus Neck no lymphadenopathy, supple and no JVD General: Negative for tenderness Carotids: Negative for other Lymph Lymphatic: Negative for other Resp normal respiratory effort and clear to auscultation bilaterally Effort and Inspection: Negative for respiratory distress Auscultation: Negative for rales, rhonchi or wheezes Cardio regular rhythm, S1 normal heart sound, S2 normal heart sound and no murmurs; Negative for regular rate Rate: tachycardic Rhythm: Negative for abnormal rhythm GI non-distended and no masses; Negative for non-tender Inspection: Negative for abdominal distention Auscultation: normoactive bowel sounds Palpation: soft and tender; Negative for guarding, rigid, hepatomegaly, splenomegaly, hernia, mass, pulsatile mass or rebound tenderness present Back/Spine no CVA tenderness General Back: Negative for CVA tenderness Cervical Spine: Negative for cervical spine tenderness Thoracic Spine / Upper Back: Negative for thoracic spinal tenderness Lumbar Spine / Lower Back: Negative for lumbar spinal tenderness Coccyx: Negative for other Extremity full ROM General Extremety ED: Negative for edema or tenderness General Extremity: Negative for edema Neuro CN's II-XII intact bilaterally and moves all extremities Sensorium / Orientation: alert, oriented to person, oriented to place and oriented to time; Negative for orientation impaired, confused, lethargic or stuporous Motor Exam: strength 5/5 throughout Psych mental status grossly normal and thought process normal Appearance: Negative for unkempt Attitude: No agitated Mood & Affect: Negative for depressed, anxious or tearful Skin no wounds General Skin Exam: Negative for jaundice or pallor Lesions: no lesions Rashes: no rashes Trauma: Negative for abrasion Nails: Negative for discolored MDM MDM MDM Narrative Medical decision making narrative: 22-year-old female history of Crohn's disease developed abdominal pain last night and today. 1 week ago. incision is dry and clean. CAT scan and labs are pending. She will be given morphine for pain, liter normal saline and Zofran for nausea. Repeat exam unchanged. Patient does states she had right lower quadrant pain and back pain last night. We discussed her test results. This may be an early appendicitis. I will speak to both the radiologist and the general surgeon on page. I spoke with the radiologist and the general surgeon. They are going to obtain a CAT scan with oral contrast to help differentiate retrocecal appendicitis versus possible Crohn's flare per general surgery's request. Patient is aware. She is doing well at [address] Slava Paulson in the emergency department evaluating the patient. She did have a here with her my final disposition. Repeat CAT scan with oral contrast did not change she was told, by the prior reading. Spoke to the [facility]. Our surgeon spoke to her colon rectal specialist. They will accept her but then on a bed available. She will be admitted here and transferred to clinic when a bed becomes available. Currently she will be treated as Crohn's with close observation of the possibility of this being appendicitis. She has been treated with IV Zosyn and Solu-Medrol. History & Record Review Discussion w/independent historian: Patient Additional record(s) reviewed:: Prior inpatient record, Prior outpatient record, Prior ED visit and Prior labs Lab Data Attestation: I reviewed the patient's lab results. Lab results narrative: CBC shows a white count 9.9 H&H 11.4 and 36.8. Platelet lives 491. Electrolytes show a gap of 6 normal BUN and creatinine. Liver enzymes normal. Alk phos 129. Lipase normal at 47. Urinalysis unremarkable no white or red cells. No nitrates. Labs: Laboratory Results - last 24 hr 12/09/22 12/09/22 10:59 12:01 WBC 9.9 RBC 4.35 Hgb 11.4 L Hct 36.8 L MCV 84.6 MCH 26.2 L MCHC 31.0 L RDW Std Deviation 54.0 H RDW Coeff of [place] 17.9 H Plt Count 491 H MPV 10.0 Immature Gran % (Auto) 1.300 H Neut % (Auto) 73.4 H Lymph % (Auto) 15.2 L Frontier % (Auto) 6.6 Eos % (Auto) 2.8 Baso % (Auto) 0.7 Absolute Neuts (auto) 7.3 Absolute Lymphs (auto) 1.50 Nucleated RBC % 0 Sodium 138 Potassium 3.8 Chloride 109 H Carbon Dioxide 23.0 Anion Gap 6 BUN 11 Creatinine 0.73 Est GFR (MDRD) Af Amer 126 Est GFR (MDRD) Non-Af 104 BUN/Creatinine Ratio 15.2 Glucose 90 Calcium 9.5 Total Bilirubin 0.40 AST 15 ALT 51 Alkaline Phosphatase 129 H Total Protein 7.6 Albumin 3.3 Globulin 4.3 H Albumin/Globulin Ratio 0.8 L Lipase 47 Urine Color Yellow Urine Clarity Clear Urine pH 5.0 Ur Specific [place] 1.010 Urine Protein 15 H Urine Glucose (UA) Normal Urine Ketones Negative Urine Occult Blood 250 H Urine Nitrite Negative Urine Bilirubin Negative Urine Urobilinogen Normal Ur Leukocyte Esterase 25 H Urine RBC 0-5 SEEN Urine WBC 0 SEEN Ur Squamous Epith Cells 0 SEEN Urine Bacteria 0 SEEN Urine Mucus 0 SEEN Radiography Diagnostic Testing: Clinical Impression(s) from Imaging Studies Abdomen/Pelvis CT 12/09/22 10:40 IMPRESSION: Findings in keeping with acute appendicitis. The appendix is retrocecal. Enlarged uterus due to recent section. Electronically Signed: Shlomo Gordon MD at 12:02 EDT , Abdomen CT 12/09/22 12:53 IMPRESSION: Findings suggestive of a retrocecal appendicitis. Electronically Signed: Shlomo Gordon MD at 15:28 EDT , Discharge Plan Triage Chief Complaint: Abd Pain ED Provider: Biju Becker Dx/Rx/DC Orders Clinical Impression: Hx of Crohn's disease, Status post , Abdominal pain, Acute appendicitis Prescriptions: No Action albuterol sulfate 90 mcg/actuation HFA aerosol inhaler 1 - 2 puff INHALATION Q4H PRN PRN (Reason: Wheezing) Patient Comments: INHALE 2 PUFFS EVERY 4 TO 6 HOURS NEEDED FOR SHORTNESS OF BREATH Primary Care Provider: Care Physician,No Primary Referrals: Care Physician,No Primary [Primary Care Provider] -
[2022-12-09] MEDS: Ondansetron 4 MG/2 ML Vial IV ×3 (10:52→17:56)
[2022-12-09] MEDS: morphine 8 MG/ML Syringe 6 MG IV (10:52)
[2022-12-09] MEDS: 0.9% Normal Saline 1,000 ML 1000 ML IV (10:54)
--- NOTE | 2022-12-09 10:55 | ED.RN ---
PT REQUESTING ONLY 2MG MORPHINE, 2MG GIVEN
[2022-12-09 11:12] LABS: Absolute Neutrophil Count 7.3 X10^3/uL (2.0-7.7); Basophil# 0.07 X10^3/uL; Basophil% 0.7 % (0-1); Eosinophil# 0.28 X10^3/uL; Eosinophils% 2.8 % (0-5); Hematocrit 36.8 % (37-47); Hemoglobin 11.4 g/dL (12.0-15.0); Lymphocyte % 15.2 % (19-41); Mean Corpuscular Hgb 26.2 pg (27.0-32.0); Mean Corpuscular Volume 84.6 fL (81-99); Monocyte# 0.65 X10^3/uL; Monocyte% 6.6 % (0-10); NRBC Flagged by Analyzer 0 % (0-5); Neutrophil # 7.27 X10^3/uL (2.7-7.7); Neutrophil % 73.4 % (47-70); Platelet Count 491 K/mm3 (150-450); RBC Distribution Width CV 17.9 % (11.6-14.6); Red Blood Count 4.35 M/mm3 (4.2-5.4); White Blood Count 9.9 K/mm3 (4.4-11.0)
[2022-12-09 11:21] LABS: ALB/GLOB Ratio 0.8 RATIO (0.9-2.4); AST(SGOT) 15 U/L (15-37); Alanine Aminotransfer ALT/SGPT 51 U/L (13-56); Albumin, Serum 3.3 g/dL (3.2-5.0); Alkaline Phosphatase 129 U/L (45-117); Anion Gap 6 (5-15); BUN 11 mg/dL (7-18); BUN/Creat Ratio 15.2 RATIO (10-20); Calcium,Total 9.5 mg/dL (8.5-10.1); Chloride 109 mmol/L (98-107); Creatinine, Serum 0.73 mg/dL (0.55-1.02); EST Glomerular Filtration Rate 104 mL/min (>60); Est Glom Filt Rate - Afr Amer 126 mL/min (>60); Globulin 4.3 g/dL (2.2-4.2); Glucose 90 mg/dL (74-106); Lipase 47 U/L (13-75); Potassium 3.8 mmol/L (3.5-5.1); Protein, Total 7.6 g/dL (6.4-8.2); Sodium Level 138 mmol/L (136-145)
[2022-12-09 12:13] LABS: Bacteria 0 SEEN /hpf (None Seen); Mucous, Urine 0 SEEN /hpf (<or=2+); Squamous Epithelial Cells - UA 0 SEEN /hpf (5-10); White Blood Cells 0 SEEN /hpf (0-5)
[2022-12-09 12:15] LABS: Color, Urine Yellow (Yellow); Glucose, Dipstick Normal (Normal); Ketone-Dipstick Negative (Negative); Leukocyte Esterase-Dipstick 25 /ul (Negative); Nitrite-Dipstick Negative (Negative); Occult Blood-Urine 250 /ul (Negative); Protein-Dipstick 15 mg/dl (Negative); Urine Bilirubin Dipstick Negative (Negative); Urine Clarity Clear (Clear); Urine Urobilinogen Normal (Normal)
[2022-12-09 12:21] LABS: Red Blood Cells-Urine 0-5 SEEN /hpf (0-5)
--- NOTE | 2022-12-09 12:53 | CT_ITS ---
STUDY: CT ABDOMEN AND PELVIS WITHOUT CONTRAST REASON FOR EXAM: Female, 22 years old. RLQ PAIN RADIATION DOSAGE (If Supplied By Facility): CTDIvol = ( 7.95 ) mGy, DLP = ( 383.62 ) mGycm TECHNIQUE: Transaxial images were obtained from the dome of the diaphragm to the symphysis pubis with oral contrast, and without intravenous contrast. Sagittal and coronal images were reconstructed. Oral contrast was administered at this time. Individualized dose optimization techniques were used for this CT. COMPARISON: Comparison is made with prior study done earlier in the day. FINDINGS: The visualized lung bases are unremarkable. The visualized portions of the heart are within normal limits. Normal liver. Normal gallbladder and extrahepatic biliary system. Normal spleen. Normal pancreas. Normal bilateral adrenal glands. Normal right kidney. Normal left kidney. Normal visualized stomach. Normal small intestine. Normal colon. There is evidence of a thickened retrocecal appendix with inflammatory changes surrounding the cecum. Findings are suggestive of appendicitis. There is also evidence of lymph nodes in the mesenteric fat in the right lower quadrant is suggestive mesenteric lymphadenitis. Normal abdominal aorta. Normal inferior vena cava. Normal retroperitoneum. Normal urinary bladder. Normal abdominal wall. Normal osseous structures. CT/Abdomen/Pel W ORAL Cont Only IMPRESSION: Findings suggestive of a retrocecal appendicitis. Electronically Signed: Shlomo Gordon MD at 15:28 EDT ,
--- NOTE | 2022-12-09 13:45 | ED.RN ---
data integrity consultant contacted to come talk to pt
--- NOTE | 2022-12-09 14:24 | NURSING ---
IBCLC at bedside to discuss medication safety and use regarding Zofran, Morphine, IV contrast dye, and oral Breeza dye. Zofran is L-2: Probably Compatible with according to [facility] Medications and Mother's Milk 2022 Morphine is L-3: Probably Compatible with according to [facility] Medications and Mother's Milk 2022 The peak of morphine is usually 1.5-2 hours after administration so IBCLC recommended feeding or pumping close to dosage administration, and then by the time is due to feed again the peak should be over and amounts in mother's system minimal. IV and oral contrasts: when women receive these agents, less than 1% of the dose gets into the breast milk. Of the very small amount that may show up in the milk, less than 1% of that gets into the baby?s bloodstream with the recommendation the 'theoretical' risk to your baby does not outweigh the benefits of continuing to breastfeed without interruption according to [facility]. Pt. requesting breast pump in case she needs admission to hospital, stay overnight, or surgery. Breast pump provided with instructions on settings, storage containers, and cleaning supplies.
--- NOTE | 2022-12-09 16:02 | NURSING ---
CALLED DR BREA BENAVIDES. [facility], COLRECTAL SURGEON [phone] LEFT MESSAGE WITH NURSE, IS IN SURGERY
--- NOTE | 2022-12-09 16:39 | NURSING ---
CALLING [facility] FOR TRANSFER
--- NOTE | 2022-12-09 16:52 | NURSING ---
1652- IBCLC called to confirm if Zosyn was compatible with . Zosyn is category L2: Probably compatible and okay for nursing mother to take while /pumping according to Medication and Mother's Milk 2022.
--- NOTE | 2022-12-09 17:01 | HP.PCM.SX_ITS ---
HPI - General HPI Narrative CANDELARIA ARROYO, is a 22 F who presents with pain. Patient reports the pain is in her lower abdomen. She said yesterday her right flank was hurting. She says it comes in waves. She denies nausea or vomiting. Patient states she did have a mild fever. She says this is feels like her normal Crohn's flares. She does not take a normal medication for this. She is 1 week post as well. 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 Home Medications albuterol sulfate 90 mcg/actuation aerosol inhaler 1 - 2 puff inhalation Q4H PRN PRN Wheezing 07/17/22 [History Last Taken 12/08/22] Allergy/AdvReac Type Severity Reaction Status Date / Time aspirin Allergy Shortness Verified 07/17/22 18:41 of breath peanut [peanuts] Allergy Anaphylaxis Verified 12/01/22 05:35 shellfish derived Allergy Shortness Verified 07/17/22 19:41 of breath metoclopramide [From Reglan] AdvReac Other Verified 12/01/22 05:35 Surgical History History of surgery History of surgery Social History Smoking Status: Never smoker ROS Constitutional Constitutional: Reports chills; Denies anorexia or fatigue Eyes Eyes: Denies blurry vision ENT HEENT: Denies abnormal hearing Cardiovascular Cardiovascular: Denies chest pain or chest pain at rest Respiratory/Chest Respiratory/Chest: Denies cough or dyspnea Gastrointestinal Gastrointestinal: Reports abdominal pain, constipation and diarrhea; Denies nausea or vomiting Musculoskeletal Musculoskeletal: Denies back pain Integumentary Integumentary: Denies jaundice Neurologic Neurologic: Denies abnormal gait Psychiatric Psychiatric: Denies depression Vital Signs Vital Signs Vital Signs: 12/09/22 10:23 12/09/22 12:22 12/09/22 14:00 Temperature 96.8 F L Temperature Source Temporal Pulse Rate 102 H 78 76 Respiratory Rate 18 16 14 Blood Pressure 112/79 126/76 H 116/76 Blood Pressure Mean 90 92 89 Pulse Ox 99 98 98 Oxygen Delivery Method Room Air Room Air 12/09/22 16:00 Temperature Temperature Source Pulse Rate 64 Respiratory Rate 16 Blood Pressure 124/76 H Blood Pressure Mean 92 Pulse Ox 99 Oxygen Delivery Method Room Air Weight Weight: 166 lb 10.711 oz Body Mass Index (BMI) 28.5 Physical Exam Const oriented x3 and no apparent distress Resp normal respiratory effort Cardio regular rate and regular rhythm GI soft to palpation Inspection: Negative for abdominal distention Palpation: tender LLQ and RLQ Results Lab / Micro Data 12/09/22 10:59 12/09/22 10:59 Labs: Laboratory Results - last 24 hr 12/09/22 10:59: WBC 9.9, RBC 4.35, Hgb 11.4 L, Hct 36.8 L, MCV 84.6, MCH 26.2 L, MCHC 31.0 L, RDW Std Deviation 54.0 H, RDW Coeff of [place] 17.9 H, Plt Count 491 H, MPV 10.0, Immature Gran % (Auto) 1.300 H, Neut % (Auto) 73.4 H, Lymph % (Auto) 15.2 L, [place] % (Auto) 6.6, Eos % (Auto) 2.8, Baso % (Auto) 0.7, Absolute Neuts (auto) 7.3, Absolute Lymphs (auto) 1.50, Nucleated RBC % 0, Sodium 138, Potassium 3.8, Chloride 109 H, Carbon Dioxide 23.0, Anion Gap 6, BUN 11, Creatinine 0.73, Est GFR (MDRD) Af Amer 126, Est GFR (MDRD) Non-Af 104, BUN/Creatinine Ratio 15.2, Glucose 90, Calcium 9.5, Total Bilirubin 0.40, AST 15, ALT 51, Alkaline Phosphatase 129 H, Total Protein 7.6, Albumin 3.3, Globulin 4.3 H, Albumin/Globulin Ratio 0.8 L, Lipase 47 12/09/22 12:01: Urine Color Yellow, Urine Clarity Clear, Urine pH 5.0, Ur Specific [place] 1.010, Urine Protein 15 H, Urine Glucose (UA) Normal, Urine Ketones Negative, Urine Occult Blood 250 H, Urine Nitrite Negative, Urine Bilirubin Negative, Urine Urobilinogen Normal, Ur Leukocyte Esterase 25 H, Urine RBC 0-5 SEEN, Urine WBC 0 SEEN, Ur Squamous Epith Cells 0 SEEN, Urine Bacteria 0 SEEN, Urine Mucus 0 SEEN Radiology Impression Abdomen/Pelvis CT 12/09/22 10:40 IMPRESSION: Findings in keeping with acute appendicitis. The appendix is retrocecal. Enlarged uterus due to recent section. Electronically Signed: Shlomo Gordon MD at 12:02 EDT , Abdomen CT 12/09/22 12:53 IMPRESSION: Findings suggestive of a retrocecal appendicitis. Electronically Signed: Shlomo Gordon MD at 15:28 EDT , Assessment & Plan Assessment/Plan (1) Abdominal pain: QUALIFIERS: Abdominal location: lower abdomen, unspecified Qualified Code(s): R10.30 - Lower abdominal pain, unspecified PLAN: The patient has a history of Crohn's disease and reports that this feels like her normal Crohn's flareup. She has been hospitalized at [facility] and sees a surgeon there. She is requesting transfer to her surgeon. I did review the CT scan and I feel that this may be a Crohn's flare. I do see her distal small bowel dilated with stool and fecalized stool. Her cecum seems to be collapsed. I reviewed her CT scan from 2020 at the [facility] and it appears very similar. On that CT scan her appendix crosses the psoas into the pelvis and is not retrocecal. I discussed this with the patient's surgeon and he did say that she could be transferred to [facility]. I discussed with the patient and her father who is a GI doctor and they both feel that this is more likely to be Crohn's and do not want surgery if avoidable. I will put in for transfer to [facility] and in the meantime I will start her on steroids and antibiotics. I will keep her n.p.o. Patient is very agreeable to this plan and does not want surgery at this time if possible. I will treat this conservatively. Slava Paulson MD Pager: [facility] [address] [place] [address], [address] [place] [address] Office:
[2022-12-09] MEDS: Morphine 2 MG/ML Syringe IV (17:56)
[2022-12-09] MEDS: MethylPREDNISolone 125 MG/2 ML Vial 60 MG IV (18:19)
[2022-12-09] MEDS: 0.9% Normal Saline 1,000 ML 100 ML IV (20:01)
--- NOTE | 2022-12-09 20:36 | ED.RN ---
PT asked for baby and boyfriend to spend the night due to baby . Approval obtained from material handling warehouse supervisor. explained to pt and boyfriend that baby can stay so long as boyfriend is here to provide care for baby.
[2022-12-10 03:00] VITALS: BP 115/71; PULSE 52; RESP 16; TEMP 36.6; O2SAT 97
[2022-12-10] MEDS: 0.9% Normal Saline 1,000 ML 100 ML IV (05:24)
[2022-12-10 06:37] LABS: Absolute Lymphocyte Count 1.81 X10^3/uL (0.83-4.51); Basophil# 0.04 X10^3/uL; Basophil% 0.5 % (0-1); Eosinophil# 0.04 X10^3/uL; Eosinophils% 0.5 % (0-5); Hematocrit 31.6 % (37-47); Hemoglobin 9.6 g/dL (12.0-15.0); Lymphocyte # 1.81 X10^3/ul (0.83-4.51); Lymphocyte % 21.1 % (19-41); Mean Corp Hgb Conc 30.4 g/dL (32-36); Mean Corpuscular Hgb 26.1 pg (27.0-32.0); Mean Corpuscular Volume 85.9 fL (81-99); Mean Platelet Vol. 10.2 fl (6.2-12.0); Monocyte# 0.63 X10^3/uL; Monocyte% 7.4 % (0-10); NRBC Flagged by Analyzer 0 % (0-5); Neutrophil # 5.95 X10^3/uL (2.7-7.7); Neutrophil % 69.4 % (47-70); Platelet Count 470 K/mm3 (150-450); RBC Distribution Width CV 17.8 % (11.6-14.6); RBC Distribution Width SD 55.2 fl (35.1-43.9); Red Blood Count 3.68 M/mm3 (4.2-5.4); White Blood Count 8.6 K/mm3 (4.4-11.0)
--- NOTE | 2022-12-10 06:59 | NURSING ---
tyron at [facility] notified pt is refusing to go to [facility]. Pt said she feels fine. no pain
[2022-12-10 07:06] LABS: Anion Gap 6 (5-15); BUN 8 mg/dL (7-18); Calcium,Total 8.1 mg/dL (8.5-10.1); Chloride 113 mmol/L (98-107); Creatinine, Serum 0.62 mg/dL (0.55-1.02); EST Glomerular Filtration Rate 126 mL/min (>60); Est Glom Filt Rate - Afr Amer 152 mL/min (>60); Estimated Creatinine Clearance 120.82 ml/min; Glucose 95 mg/dL (74-106); Potassium 3.6 mmol/L (3.5-5.1); Sodium Level 141 mmol/L (136-145)
--- NOTE | 2022-12-10 07:07 | PCM.PN.SRG ---
Subjective Subjective Patient reports no abdominal pain today. She tolerated clear liquids with no nausea or vomiting. She is not passing flatus yet. Objective Data Objective Data Vital Signs: Vital Signs Temp Pulse Resp BP Pulse Ox O2 Del Method 97.8 F 52 L 16 115/71 97 Room Air 12/10/22 03:00 12/10/22 03:00 12/10/22 03:00 12/10/22 03:00 12/10/22 03:00 12/10/22 03:00 Oxygen Delivery Method Room Air Weight: 165 lb 14.4 oz Body Mass Index (BMI) 28.5 Intake & Output: Intake and Output for Last 24 Hours 12/08/22 12/09/22 12/10/22 23:59 23:59 23:59 Intake Total 1108.5 / 1108.5 988.33 / 988.33 Balance 1108.5 / 1108.5 988.33 / 988.33 Lab / Micro Data 12/10/22 05:54 12/10/22 05:54 Labs: Laboratory Results - last 24 hr 12/09/22 10:59: WBC 9.9, RBC 4.35, Hgb 11.4 L, Hct 36.8 L, MCV 84.6, MCH 26.2 L, MCHC 31.0 L, RDW Std Deviation 54.0 H, RDW Coeff of [place] 17.9 H, Plt Count 491 H, MPV 10.0, Immature Gran % (Auto) 1.300 H, Neut % (Auto) 73.4 H, Lymph % (Auto) 15.2 L, [place] % (Auto) 6.6, Eos % (Auto) 2.8, Baso % (Auto) 0.7, Absolute Neuts (auto) 7.3, Absolute Lymphs (auto) 1.50, Nucleated RBC % 0, Sodium 138, Potassium 3.8, Chloride 109 H, Carbon Dioxide 23.0, Anion Gap 6, BUN 11, Creatinine 0.73, Est GFR (MDRD) Af Amer 126, Est GFR (MDRD) Non-Af 104, BUN/Creatinine Ratio 15.2, Glucose 90, Calcium 9.5, Total Bilirubin 0.40, AST 15, ALT 51, Alkaline Phosphatase 129 H, Total Protein 7.6, Albumin 3.3, Globulin 4.3 H, Albumin/Globulin Ratio 0.8 L, Lipase 47 12/09/22 12:01: Urine Color Yellow, Urine Clarity Clear, Urine pH 5.0, Ur Specific [place] 1.010, Urine Protein 15 H, Urine Glucose (UA) Normal, Urine Ketones Negative, Urine Occult Blood 250 H, Urine Nitrite Negative, Urine Bilirubin Negative, Urine Urobilinogen Normal, Ur Leukocyte Esterase 25 H, Urine RBC 0-5 SEEN, Urine WBC 0 SEEN, Ur Squamous Epith Cells 0 SEEN, Urine Bacteria 0 SEEN, Urine Mucus 0 SEEN 12/10/22 05:54: WBC 8.6, RBC 3.68 L, Hgb 9.6 L, Hct 31.6 L, MCV 85.9, MCH 26.1 L, MCHC 30.4 L, RDW Std Deviation 55.2 H, RDW Coeff of [place] 17.8 H, Plt Count 470 H, MPV 10.2, Immature Gran % (Auto) 1.100 H, Neut % (Auto) 69.4, Lymph % (Auto) 21.1, [place] % (Auto) 7.4, Eos % (Auto) 0.5, Baso % (Auto) 0.5, Absolute Neuts (auto) 6.0, Absolute Lymphs (auto) 1.81, Nucleated RBC % 0, Sodium 141, Potassium 3.6, Chloride 113 H, Carbon Dioxide 22.0, Anion Gap 6, BUN 8, Creatinine 0.62, Estim Creat Clear Calc 120.82, Est GFR (MDRD) Af Amer 152, Est GFR (MDRD) Non-Af 126, BUN/Creatinine Ratio 13.0, Glucose 95, Calcium 8.1 L Radiography Diagnostic Testing: Radiology Impression Abdomen/Pelvis CT 12/09/22 10:40 IMPRESSION: Findings in keeping with acute appendicitis. The appendix is retrocecal. Enlarged uterus due to recent section. Electronically Signed: Shlomo Gordon MD at 12:02 EDT , Abdomen CT 12/09/22 12:53 IMPRESSION: Findings suggestive of a retrocecal appendicitis. Electronically Signed: Shlomo Gordon MD at 15:28 EDT , Physical Exam Const oriented x3 and no apparent distress GI soft to palpation and non-tender Inspection: Negative for abdominal distention Assessment & Plan Assessment/Plan (1) Crohn's disease: QUALIFIERS: Gastrointestinal tract location: unspecified location Digestive disease complication type: without complication Qualified Code(s): K50.90 - Crohn's disease, unspecified, without complications PLAN: Patient seems to be having a Crohn's flare instead of appendicitis. Her white count is decreasing and she is having no abdominal pain today. The nurses saying that she is starting to have bowel sounds and she is having no pain and no nausea. She tolerated clears. I will continue the steroids and antibiotics today and advance her diet when she starts passing flatus. Likely DC tomorrow. Slava Paulson MD Pager: [facility] [address] [place] [address], [address] [place] [address] Office:
[2022-12-10 09:13] VITALS: BP 104/63; PULSE 60; RESP 16; TEMP 36.9; O2SAT 99
[2022-12-10] MEDS: MethylPREDNISolone 125 MG/2 ML Vial 60 MG IV ×2 (10:16→19:04)
--- NOTE | 2022-12-10 12:15 | CASEMGMT ---
GREY LÓPEZ Discharge Planning Assessment: Face to Face with patient for initial transition planning/care coordination assessment.? GREY LÓPEZ introduced self and role at [facility], pt alert, voices understanding and is agreeable to participating in assessment.? Care providers, pharmacy,?and demographics verified. ? Admitting dx: Chrohn's flare PCP: none; Pt declines a list of PCP providers in the [place] or [place] area. Specialists: ONEYDA Paulson FIXED CAPITAL CLERK Preferred Pharmacy: [facility] Insurance: [place] Prescription Benefit: yes? LNOK: mother [place] Living Arrangements: Pt lives with her significant other and baby girl. Pt states she is independent with ADLs and IADLs. Transportation: denies concerns DME/HHC/SNF: denies ? Plan: Home with support of significant other Will continue to monitor and assist with dc needs as identified. Connie Everett RN CM
--- NOTE | 2022-12-10 16:02 | NURSING ---
This IBCLC Spoke with mother. Baby is latching and nursing well. Mother has our hospital pump and supplies if needed. The only request mother had was a need for more diapers during her stay. She did not bring enough to get her through this admission and doesn't have anyone to bring her extra. We supplied mother with some diapers. Mother has no other question or concerns at this time.
[2022-12-10 16:16] VITALS: BP 121/73; PULSE 56; RESP 18; TEMP 36.7; O2SAT 98
--- NOTE | 2022-12-10 18:53 | DS.PCM_ITS ---
Providers Date of Admission: 12/09/22 Primary Care Physician: No Primary Care Phys Reason For Visit: [place] Diagnosis Discharge Diagnosis (1) Crohn's disease: Status: Acute Code(s): K50.90 - Crohn's disease, unspecified, without complications Qualifiers: Gastrointestinal tract location: unspecified location Digestive disease complication type: without complication Qualified Code(s): K50.90 - Crohn's disease, unspecified, without complications Plan: Patient seems to be having a Crohn's flare instead of appendicitis. Her white count is decreasing and she is having no abdominal pain today. The nurses saying that she is starting to have bowel sounds and she is having no pain and no nausea. She tolerated clears. I will continue the steroids and antibiotics today and advance her diet when she starts passing flatus. Likely DC tomorrow. Slava Paulson MD Pager: [facility] [address] [place] [address], [address] [place] [phone] Office: Medications at Discharge Home Medications albuterol sulfate 90 mcg/actuation aerosol inhaler 1 - 2 puff inhalation Q4H PRN PRN Wheezing 07/17/22 prednisone 50 mg tablet 50 mg PO BID 10 days #20 tabs 12/10/22 Hospital Course Summary of Care Provided Hospital Course: Patient was a with Crohn's flare versus appendicitis. She was started on steroids. By the next morning she was feeling better and her pain had resolved and she started having bowel function. Today she tolerated clears and then was advanced to regular and did have a bowel movement and she has no pain at this time. She will be discharged home on a taper of steroids and she will follow-up with her metal window screen assembler. Weight / BMI Weight Weight: 165 lb 14.4 oz Body Mass Index (BMI) 28.5 ABG / Lab / Microbiology Data 12/10/22 05:54 12/10/22 05:54 Laboratory: Laboratory Results - last 24 hr 12/10/22 05:54: WBC 8.6, RBC 3.68 L, Hgb 9.6 L, Hct 31.6 L, MCV 85.9, MCH 26.1 L , MCHC 30.4 L, RDW Std Deviation 55.2 H, RDW Coeff of [place] 17.8 H, Plt Count 470 H, MPV 10.2, Immature Gran % (Auto) 1.100 H, Neut % (Auto) 69.4, Lymph % (Auto) 21.1, [place] % (Auto) 7.4, Eos % (Auto) 0.5, Baso % (Auto) 0.5, Absolute Neuts (auto) 6.0, Absolute Lymphs (auto) 1.81, Nucleated RBC % 0, Sodium 141, Potassium 3.6, Chloride 113 H, Carbon Dioxide 22.0, Anion Gap 6, BUN 8, Creatinine 0.62, Estim Creat Clear Calc 120.82, Est GFR (MDRD) Af Amer 152, Est GFR (MDRD) Non-Af 126, BUN/Creatinine Ratio 13.0, Glucose 95, Calcium 8.1 L D/C Instructions Discharge Diet: Light diet - advance as tolerated Discharge Activity: Return to Normal Activity Call your doctor if your incision/area has: Increased Pain/ Swelling Call your doctor if you observe: Fever of 101 or Higher and Inability to have a bowel movement Please Follow Up With: Slava Paulson MD When: Follow-up as needed, , follow up with your metal window screen assembler Meaningful Use Info Meaningful Use Diagnoses (Choose all that apply): None applicable Discharge Plan Admission Admit Date/Time: 12/09/22 19:33 Attending Provider: Slava Paulson Primary Care Provider: Haley Stack Primary Discharge Orders/Prescriptions Prescriptions: New prednisone 50 mg tablet 50 mg PO BID 10 Days Qty: 20 0RF Continued albuterol sulfate 90 mcg/actuation HFA aerosol inhaler 1 - 2 puff INHALATION Q4H PRN PRN (Reason: Wheezing) Patient Comments: INHALE 2 PUFFS EVERY 4 TO 6 HOURS NEEDED FOR SHORTNESS OF BREATH Referrals / Follow Up: Care PhysicianHaley Primary [Primary Care Provider] - Disposition Disposition (needs filled in before D/C Order can be placed): Home, Self Care
[2022-12-10 18:58] VITALS: BP 128/70; PULSE 54; RESP 18; TEMP 36.8; O2SAT 98
[2022-12-10] MEDS: 0.9% Saline Lock 10 ML Syringe IV (19:05)
== END 2022-12-10 20:15 | disposition home or self-care (01) | DRG 387 ==
LOC: ED 10:52 → MS3 20:23
PROVIDERS: Admitting Provider Surgery; Emergency Provider Emergency Medicine; Referring Provider Surgery; Visit Provider Surgery
DX: K50.90 Crohn's disease, unspecified, without complications (principal)
CPT/HCPCS: 36415; 74176; 74177; 80048; 80053; 81001; 83690; 85025; 99283; J7030; J7050; Q9967; A4216; J2405